=== PATIENT | male | born 1970 | race Caucasian/White ===

== ENCOUNTER 2016-10-04 10:17 | Emergency (ER) | payer SELFPAY ==
[~2016-10-04] VITALS: Ht 152.4 cm; Wt 59.0 kg
== END 2016-10-04 12:14 | disposition home or self-care (01) ==
LOC: CED 10:17
DX: M70.51 Other bursitis of knee, right knee (principal); E11.9 Type 2 diabetes mellitus without complications; I10 Essential (primary) hypertension; E78.5 Hyperlipidemia, unspecified
CPT/HCPCS: 29530; 82947; 96372; 99283; J1885